=== PATIENT | female | born 1990 ===

== ENCOUNTER 2017-08-10 10:23 | Emergency (ER) | payer OTHER ==
[2017-08-10 10:40] VITALS: BP 122/75; PULSE 82; TEMP 98; O2SAT 100
--- NOTE | 2017-08-10 10:47 | C.PDOC ---
History Of Present Illness 25 y/o female presents to the ED for evaluation of possible allergic reaction. Patient works at a dental office and had a dental procedure done on , and was prescribed Tylenol, Codeine and Azithromycin. Later on patient noted left and right side facial swelling and itchiness. She went to her dentist and he noted that the swelling is not related to dental procedure and might be allergic reaction and advised the patient to come to ED. Denies fever, SOB, or any further medical complaints. Dr. Allred Time Seen by Provider: 08/10/17 10:34 Chief Complaint (Nursing): Allergic Reaction History Per: Patient History/Exam Limitations: no limitations Onset/Duration Of Symptoms: Days (x3 days) Current Symptoms Are (Timing): Still Present Past Medical History Vital Signs: Last Vital Signs Temp 98 F 08/10/17 10:38 Pulse 82 08/10/17 10:38 Resp 18 08/10/17 10:38 BP 122/75 08/10/17 10:38 Pulse Ox 100 08/10/17 11:01 - Medical History PMH: Hyperlipidemia Surgical History: No Surg Hx Family History: States: Unknown Family Hx - Social History Hx Tobacco Use: Yes (Light smoker < 10 cigarettes daily) Hx Alcohol Use: Yes Hx Substance Use: Yes Review Of Systems Except As Marked, All Systems Reviewed And Found Negative. (As per HPI, otehrwise negative) Physical Exam - Physical Exam Appears: Well, No Acute Distress Skin: Normal Color, Warm, Dry Eye(s): bilateral: Normal Inspection, PERRL, EOMI Nose: Normal Tongue: Normal Appearing Lips: Normal Appearing Teeth: Normal Dentition Throat: Normal Neck: Normal Cardiovascular: Rhythm Regular, No Murmur Respiratory: Normal Breath Sounds, No Accessory Muscle Use Neurological/Psych: Oriented x3 ED Course And Treatment O2 Sat by Pulse Oximetry: 100 (RA) Pulse Ox Interpretation: Normal Medical Decision Making Medical Decision Making: Time: 10:35 Initial Impression: Allergic reaction Plan: Diphenhydramine 50mg PO Prednisone 60mg PO --Discontinue Codeine and Azithromycin. Time: 10:43 Upon provider reevaluation patient is feeling better, is medically stable, and requires no further treatment in the ED at this time. Patient will be discharged home with Rx for Clindamycin 1tab PO, Diphenhydramine 1tab PO and Prednisone 1tab PO. Counseling was provided and all questions were answered regarding diagnosis. There is agreement to discharge plan. Return if symptoms persist or worsen. Clinical Impression: Drug Allergy Scribe Attestation: Documented by Sharan Merino acting as a scribe for Boy Em MD. Scribe Attestation: All medical record entries made by the Scribe were at my direction and personally dictated by me. I have reviewed the chart and agree that the record accurately reflects my personal performance of the history, physical exam, medical decision making, and the department course for this patient. I have also personally directed, reviewed, and agree with the discharge instructions and disposition. Disposition Counseled Patient/Family Regarding: Need For Followup, Rx Given - Disposition Disposition: HOME/ ROUTINE Disposition Time: 10:43 Condition: STABLE Additional Instructions: Ric, thank you for letting us take care of you today. You are having an allergic reaction to either Tylenol with Codeine or Azithromycin. Do not take these medications again. Return to the ER if your symptoms worsen, or if any problems. Please discontinue BOTH the Tylenol with Codeine and Azithromycin Take the medication listed below as prescribed. Follow up with Dr. Allred in 1-2 days for a re-evaluation. Prescriptions: Clindamycin [Cleocin] 1 tab PO TID #21 cap DiphenhydrAMINE [Benadryl] 1 tab PO DAILY PRN #30 cap PRN Reason: Itching / Pruritus Prednisone [Deltasone] 1 tab PO BID #10 tablet Instructions: Antibiotic Medication Allergy (ED), General Allergic Reaction (ED ) Forms: [facility] ([place]izen [place]), General Discharge Instructions Print Language: [place]ISH - Clinical Impression Clinical Impression: Drug allergy
[2017-08-10 11:14] VITALS: RESP 16
== END 2017-08-10 11:00 | disposition home or self-care (01) ==
LOC: C.ER 10:23
DX: T88.7XXA Unspecified adverse effect of drug or medicament, initial encounter (principal); T50.995A Adverse effect of other drugs, medicaments and biological substances, initial encounter; Y92.89 Other specified places as the place of occurrence of the external cause

== ENCOUNTER 2018-07-26 14:50 | Inpatient (IN) | payer OTHER ==
[2018-07-26] MEDS ORDERED: Sodium Chloride 0.9% 1,000 ML IV ONE (15:19)
--- NOTE | 2018-07-26 15:26 | C.PDOC ---
History Of Present Illness 27 yo female presents iwth left sided abd pain/left flank pain since last night. no fevers, no n/v/d, no hematuria, lmp 12/13. Time Seen by Provider: 07/26/18 15:14 Chief Complaint (Nursing): Abdominal Pain Past Medical History Reviewed: Historical Data, Nursing Documentation, Vital Signs Vital Signs: Last Vital Signs Temp 97.9 F 07/26/18 14:55 Pulse 100 H 07/26/18 14:55 Resp 20 07/26/18 14:55 BP 104/61 07/26/18 14:55 Pulse Ox 100 07/26/18 14:55 - Medical History PMH: Bipolar Disorder, Hyperlipidemia Family History: States: Unknown Family Hx - Social History Hx Tobacco Use: Yes (Light smoker < 10 cigarettes daily) Hx Alcohol Use: Yes Hx Substance Use: Yes (THC) - Immunization History Hx Tetanus Toxoid Vaccination: No Hx Influenza Vaccination: No Hx Pneumococcal Vaccination: No Review Of Systems Gastrointestinal: Positive for: Abdominal Pain Physical Exam - Physical Exam Appears: Well, No Acute Distress Skin: Normal Color, Warm, Dry Eye(s): bilateral: Normal Inspection, PERRL, EOMI Nose: Normal Throat: Normal Neck: Normal Cardiovascular: Rhythm Regular Respiratory: Normal Breath Sounds Gastrointestinal/Abdominal: Normal Exam, Soft, Tenderness (left flank), No Guarding, No Rebound Back: Normal Inspection Extremity: Normal ROM ED Course And Treatment - Laboratory Results Result Diagrams: 07/27/18 09:16 07/27/18 09:16 O2 Sat by Pulse Oximetry: 100 Medical Decision Making Medical Decision Making: ro renal colic vs uti/pyelo. labs imaging pending 600: pt reassesed pain improving. ct pending read ct shows possible perferoated diverticulits antibiotics dosed hemodynamicall stable. surgery consulted. [facility] Disposition - Disposition Disposition: HOSPITALIZED Disposition Time: 14:29 Condition: STABLE - Clinical Impression Clinical Impression: Diverticulitis, Perforated diverticulum
[2018-07-26 16:06] LABS: HCG,QUALITATIVE URINE NEGATIVE (NEGATIVE)
[2018-07-26 16:07] LABS: BASO % 0.2 % (0.0-2.0); EOS # 0.3 K/uL (0.0-0.7); HEMOGLOBIN 14.1 g/dL (11.0-16.0); LYMPH # 1.8 K/uL (1.0-4.3); LYMPH % 14.6 % (20.0-40.0); MEAN CELL VOLUME 92.9 fL (81.0-99.0); MEAN CORPUSCULAR HEMOGLOBIN 31.2 pg (27.0-31.0); MEAN CORPUSCULAR HGB CONC 33.5 g/dL (33.0-37.0); MEAN PLATELET VOLUME 7.8 fL (7.2-11.7); MONO # 1.1 K/uL (0.0-0.8); MONO % 8.8 % (0.0-10.0); NEUT # 9.4 K/uL (1.8-7.0); NEUT % 74.4 % (50.0-75.0); RBC 4.54 Mil/uL (3.80-5.20); WHITE BLOOD COUNT 12.7 K/uL (4.8-10.8)
[2018-07-26 16:10] LABS: SQUAMOUS EPITHIAL 12 /hpf (0-5); URINE BACTERIA RARE (<OCC); URINE BILIRUBIN NEGATIVE (NEGATIVE); URINE BLOOD 3+ (NEGATIVE); URINE CLARITY Hazy (Clear); URINE COLOR Yellow (YELLOW); URINE GLUCOSE (UA) NORMAL (Normal); URINE LEUKOCYTE ESTERASE NEG Leu/uL (Negative); URINE PROTEIN NEGATIVE (NEGATIVE); URINE UROBILINOGEN NORMAL mg/dL (0.2-1.0)
[2018-07-26 16:20] LABS: ALB/GLOB RATIO 1.5 (1.0-2.1); ALBUMIN 4.4 g/dL (3.5-5.0); ALT/SGPT 28 U/L (9-52); AST/SGOT 22 U/L (14-36); BLOOD UREA NITROGEN 11 mg/dL (7-17); GFR NON-AFRICAN AMERICAN > 60; LIPASE 22 U/L (23-300)
[2018-07-26 16:21] LABS: INR 1.2; PROTHROMBIN TIME 12.6 SECONDS (9.7-12.2)
[2018-07-26] MEDS ORDERED: Piperacillin/Tazobact 3.375 gm 100 ML IVPB STA (18:57)
[2018-07-26] MEDS ORDERED: Piperacill/Tazo 3.375gm in Dex 3.375 GM/50 ML BAG IVPB STA (19:07)
--- NOTE | 2018-07-26 19:19 | RAD ---
HISTORY: abd pain COMPARISON: None available. TECHNIQUE: Chest, one view. FINDINGS: LUNGS: No focal consolidation. Please note that chest x-ray has limited sensitivity for the detection of pulmonary masses. PLEURA: No significant pleural effusion identified. No definite pneumothorax . CARDIOVASCULAR: Heart size appears within normal limits. No significant atherosclerotic calcification present. OSSEOUS STRUCTURES: No acute osseous abnormality identified. VISUALIZED UPPER ABDOMEN: Unremarkable. OTHER FINDINGS: None. IMPRESSION: No focal consolidation.
[2018-07-26] MEDS ORDERED: Piperacillin/Tazobact 3.375 GM in Sodium Chloride 100 ML IVPB SCH (20:15)
--- NOTE | 2018-07-26 20:20 | CP.PCM.CON ---
History of Present Illness - History of Present Illness History of Present Illness: General Surgery Consult Note for Dr. Uriarte Consult: Diverticulitis CC: Abdominal pain HPI: 27 year old female, past medical history significant for IBS and colitis, presents to the emergency department with sudden onset left lower quadrant pain since yesterday evening. Patient initially thought it was gas. She had a small bowel movement today and is passing gas with no symptom relief. The pain worsened to a cramping sensation that radiated to her back and became unbearable. She was unable to find a comfortable position and admits to a subjective fever. She has had a similar episode about 2-3 months ago which brought her to the ER. At that time, she was found to have colitis and sent home with "some pills" that made her better. Her diet primarily consists of greasy, low fiber, high fat foods. She does not see a loans officer; however, her previous doctor in [place] did explain that she needs to adjust her diet and incorporate more fiber. She suffers from constipation regularly and her bowel movements are usually "pellets" that require straining to evacuate. She denies any colonoscopies or EGDs in the past. Patient denies any bloody bowel movements, black/tarry stools, hematemesis, nausea, vomiting, diarrhea, chills, shortness of breath, chest pain, or urinary symptoms. PMH: See above PSH: Cervical biopsy after pap smear (Path was normal per patient) FH: Noncontributory SH: Smokes 2-3 cigarettes since 13 years of age. Social drinker. No drugs. ALL: Azithromycin Meds: See MAR Review of Systems - Constitutional Constitutional: Fever. absent: Chills, Weight Loss - EENT Eyes: absent: Blurred Vision, Change in Vision Nose/Mouth/Throat: absent: Nasal Congestion, Nasal Discharge - Cardiovascular Cardiovascular: absent: Chest Pain, Dyspnea - Respiratory Respiratory: absent: Cough, Dyspnea - Gastrointestinal Gastrointestinal: Abdominal Pain, Constipation, Cramping. absent: Diarrhea, Melena, Nausea, Vomiting - Genitourinary Genitourinary: absent: Difficulty Urinating, Dysuria - Musculoskeletal Musculoskeletal: Back Pain. absent: Neck Pain - Integumentary Integumentary: absent: Bleeding Lesions, Changing Lesions - Neurological Neurological: absent: Confusion, Dizziness - Psychiatric Psychiatric: absent: Anxiety, Depression Past Patient History - Infectious Disease Hx of Infectious Diseases: None - Past Social History Smoking Status: Light Smoker < 10 Cigarettes Daily - GASTROINTESTINAL Hx Irritable Bowel: Yes - PSYCHIATRIC Hx Bipolar Disorder: Yes Hx Substance Use: Yes (THC) - SURGICAL HISTORY Hx Surgeries: Yes Other/Comment: tooth implant - ANESTHESIA Hx Anesthesia: Yes Hx Anesthesia Reactions: No Meds Allergies/Adverse Reactions: Allergies Allergy/AdvReac Type Severity Reaction Status Date / Time acetaminophen Allergy Verified 08/10/17 10:38 [From Tylenol-Codeine #3] azithromycin Allergy Verified 08/10/17 10:38 [From Zithromax Z-Yaya] codeine Allergy Verified 08/10/17 10:38 [From Tylenol-Codeine #3] - Medications Medications: Current Medications Lactated Ringer's (Lactated Ringer's) 1,000 mls @ 100 mls/hr IV .Q10H CARLOS Metronidazole (Flagyl) 500 mg in 100 mls @ 100 mls/hr IVPB Q8H CARLOS; Protocol Piperacillin Sod/Tazobactam (Sod 3.375 gm/ Sodium Chloride) 100 mls @ 200 mls /hr IVPB Q6H CARLOS; Protocol Ondansetron HCl (Zofran Inj) 4 mg IVP DAILY@ONCE PRN PRN Reason: Nausea/Vomiting Tramadol HCl (Ultram) 50 mg PO TID PRN PRN Reason: Pain, moderate (4-7) Physical Exam - Constitutional Appears: Well, Non-toxic, No Acute Distress - Head Exam Head Exam: ATRAUMATIC, NORMAL INSPECTION, NORMOCEPHALIC - Eye Exam Eye Exam: EOMI - ENT Exam ENT Exam: Mucous Membranes Moist - Respiratory Exam Respiratory Exam: NORMAL BREATHING PATTERN. absent: Respiratory Distress - Cardiovascular Exam Cardiovascular Exam: REGULAR RHYTHM. absent: Tachycardia - GI/Abdominal Exam GI & Abdominal Exam: Normal Bowel Sounds, Soft, Tenderness (in the left lower quadrant ). absent: Distended, Guarding, Rebound - Neurological Exam Neurological exam: Alert, Oriented x3 - Psychiatric Exam Psychiatric exam: Normal Affect, Normal Mood - Skin Skin Exam: Dry, Intact, Normal Color, Warm Results - Vital Signs Recent Vital Signs: Last Vital Signs Temp 98.8 F 07/26/18 20:11 Pulse 83 07/26/18 20:11 Resp 16 07/26/18 20:11 BP 98/62 L 07/26/18 20:11 Pulse Ox 100 07/26/18 20:11 - Labs Result Diagrams: 07/26/18 16:02 07/26/18 16:02 Labs: Laboratory Results - last 24 hr 07/26/18 07/26/18 07/26/18 16:02 16:02 16:02 WBC 12.7 H RBC 4.54 Hgb 14.1 Hct 42.1 MCV 92.9 MCH 31.2 H MCHC 33.5 RDW 13.0 Plt Count 263 MPV 7.8 Neut % (Auto) 74.4 Lymph % (Auto) 14.6 L [place] % (Auto) 8.8 Eos % (Auto) 2.0 Baso % (Auto) 0.2 Neut # (Auto) 9.4 H Lymph # (Auto) 1.8 [place] # (Auto) 1.1 H Eos # (Auto) 0.3 Baso # (Auto) 0.0 PT 12.6 H INR 1.2 APTT 30 Sodium Potassium Chloride Carbon Dioxide Anion Gap BUN Creatinine Est GFR ( Amer) Est GFR (Non-Af Amer) Random Glucose Calcium Total Bilirubin AST ALT Alkaline Phosphatase Total Protein Albumin Globulin Albumin/Globulin Ratio Lipase Urine Color Yellow Urine Clarity Hazy Urine pH 5.0 Ur Specific [place] 1.025 Urine Protein Negative Urine Glucose (UA) Normal Urine Ketones Negative Urine Blood 3+ H Urine Nitrate Negative Urine Bilirubin Negative Urine Urobilinogen Normal Ur Leukocyte Esterase Neg Urine WBC (Auto) 2 Urine RBC (Auto) 31 H Ur Squamous Epith Cells 12 H Urine Bacteria Rare Urine HCG, Qual Negative 07/26/18 16:02 WBC RBC Hgb Hct MCV MCH MCHC RDW Plt Count MPV Neut % (Auto) Lymph % (Auto) [place] % (Auto) Eos % (Auto) Baso % (Auto) Neut # (Auto) Lymph # (Auto) [place] # (Auto) Eos # (Auto) Baso # (Auto) PT INR APTT Sodium 136 Potassium 3.8 Chloride 103 Carbon Dioxide 25 Anion Gap 12 BUN 11 Creatinine 0.7 Est GFR ( Amer) > 60 Est GFR (Non-Af Amer) > 60 Random Glucose 96 Calcium 9.0 Total Bilirubin 0.7 AST 22 ALT 28 Alkaline Phosphatase 68 Total Protein 7.3 Albumin 4.4 Globulin 2.9 Albumin/Globulin Ratio 1.5 Lipase 22 L Urine Color Urine Clarity Urine pH Ur Specific [place] Urine Protein Urine Glucose (UA) Urine Ketones Urine Blood Urine Nitrate Urine Bilirubin Urine Urobilinogen Ur Leukocyte Esterase Urine WBC (Auto) Urine RBC (Auto) Ur Squamous Epith Cells Urine Bacteria Urine HCG, Qual Assessment & Plan - Assessment and Plan (Free Text) Assessment: 27F w/ left lower quadrant abdominal pain CT Abd/Pel shows a left sided perforated diverticlum with associated inflammatory changes and early phlegmon. No definite fluid collection, no free air. Plan: NPO IV Abx IVF Antiemetics and analgesics PRN Serial abdominal exams Monitor vital signs and hemodynamic stability AM labs Replete electrolytes as needed Recommend GI consult Will continue to follow D/w Dr. Kalani Dumont PGY1
[2018-07-26] MEDS ORDERED: metroNIDAZOLE IV 500 mg/100 ml 500 MG/100 ML BAG ONE (20:22)
[2018-07-26] MEDS ORDERED: Lactated Ringer's 1,000 ML ONE (20:22)
[2018-07-26] MEDS: metroNIDAZOLE IV 500 mg/100 ml 500 MG/100 ML BAG IVPB SCH (20:23)
--- NOTE | 2018-07-26 20:35 | CT ---
PROCEDURE: CT Abdomen and Pelvis without Oral or IV contrast. HISTORY: left flank pain COMPARISON: None available. TECHNIQUE: Contiguous axial images of the abdomen and pelvis. No oral or IV contrast administered. Coronal and Sagittal reformats generated and reviewed. Radiation dose: Total exam DLP = 270.1 mGy-cm. This CT exam was performed using one or more of the following dose reduction techniques: Automated exposure control, adjustment of the mA and/or kV according to patient size, and/or use of iterative reconstruction technique. FINDINGS: There is limited evaluation of the solid organs without the administration of IV contrast. LOWER THORAX: No visible consolidation, pleural effusion, or pneumothorax. LIVER: Unremarkable unenhanced appearance. GALLBLADDER AND BILE DUCTS: Unremarkable unenhanced appearance. PANCREAS: Unremarkable unenhanced appearance. SPLEEN: Unremarkable unenhanced appearance. ADRENALS: Unremarkable unenhanced appearance. KIDNEYS AND URETERS: No hydronephrosis or obstructing renal calculus. BLADDER: The urinary bladder appears unremarkable. REPRODUCTIVE: Uterus is present. Left adnexal prominence likely represents the ovary possibly with cyst. APPENDIX: The appendix appears within normal limits of caliber. No secondary signs of acute appendicitis. BOWEL: The stomach is nondistended. Lack of oral contrast limits evaluation for bowel pathology. The bowel loops appear within normal limits of caliber without evidence of intestinal obstruction. Extensive wall thickening of the left colon in region of diverticula with associated inflammatory changes; appearance consistent with acute diverticulitis. PERITONEUM: No significant free fluid. No definite free air. LYMPH NODES: No bulky lymphadenopathy identified. VASCULATURE: No atherosclerotic calcification of the aorta present. No aortic aneurysm. BONES: No acute osseous abnormality is detected. OTHER FINDINGS: None. IMPRESSION: Findings as above consistent with acute diverticulitis involving the left mid colon. Left adnexal prominence likely represents the ovary possibly with cyst; recommend pelvic ultrasound for further evaluation. Preliminary impression was provided by [facility].
[2018-07-26] MEDS: Lactated Ringer's 1,000 ML IV SCH (21:03)
--- NOTE | 2018-07-26 21:16 | CP.PCM.HP ---
<Jason Bryson - Last Filed: 07/26/18 21:18> History of Present Illness - History of Present Illness History of Present Illness: PGY-[address] Portillo Patient is a 27 year old female with PMHx only of bipolar disorder/depression who states that she began having left lower quadrant pain yesterday afternoon/evening which occurred abruptly. She does have a history of IBS with constipation, but no nausea, vomiting, or diarrhea. No prior history of diverticulitis. She denies fevers, fatigue, or chills. Came to ED and found to have acute diverticulitis on CT abdomen. She had been tolerating PO intake without any pain. Denies family hx of cancer, abdominal issues, or other problems. PMHxL Bipolar/depression - does not see psych currently Allergies: NKA Surgeries: None Family hx: No known Medications: Bowles (prescribed in past, not currently taking, dose unknown) PMD: None Present on Admission - Present on Admission Any Indicators Present on Admission: No Review of Systems - Constitutional Constitutional: absent: Chills, Fatigue, Fever - EENT Eyes: absent: Blurred Vision, Diplopia Ears: absent: Dizziness Nose/Mouth/Throat: absent: Nasal Congestion, Sinus Pain - Cardiovascular Cardiovascular: absent: Chest Pain, Chest Pain at Rest, Claudication, Diaphoresis - Respiratory Respiratory: absent: Cough, Dyspnea - Gastrointestinal Gastrointestinal: Abdominal Pain (llq pain. Not worse with food.), Constipation. absent: Belching, Bloating, Cramping, Diarrhea - Genitourinary Genitourinary: absent: Change in Urinary Stream, Dysuria - Reproductive: Female Reproductive:Female: absent: Amenorrhea, Menopausal - Musculoskeletal Musculoskeletal: absent: Back Pain, Myalgias, Neck Pain - Neurological Neurological: absent: Dizziness, Numbness - Psychiatric Psychiatric: absent: Anxiety, Depression - Endocrine Endocrine: absent: Fatigue, Polydipsia, Polyuria Past Patient History - Infectious Disease Hx of Infectious Diseases: None - Past Social History Smoking Status: Light Smoker < 10 Cigarettes Daily - GASTROINTESTINAL Hx Irritable Bowel: Yes - PSYCHIATRIC Hx Bipolar Disorder: Yes Hx Substance Use: Yes (THC) - SURGICAL HISTORY Hx Surgeries: Yes Other/Comment: tooth implant - ANESTHESIA Hx Anesthesia: Yes Hx Anesthesia Reactions: No Meds Allergies/Adverse Reactions: Allergies Allergy/AdvReac Type Severity Reaction Status Date / Time acetaminophen Allergy Verified 08/10/17 10:38 [From Tylenol-Codeine #3] azithromycin Allergy Verified 08/10/17 10:38 [From Zithromax Z-Yaya] codeine Allergy Verified 08/10/17 10:38 [From Tylenol-Codeine #3] Physical Exam - Constitutional Appears: Non-toxic, No Acute Distress - Head Exam Head Exam: ATRAUMATIC, NORMOCEPHALIC - Eye Exam Eye Exam: EOMI, Normal appearance - ENT Exam ENT Exam: Mucous Membranes Moist - Respiratory Exam Respiratory Exam: Clear to Auscultation Bilateral, NORMAL BREATHING PATTERN. absent: Rhonchi, Wheezes - Cardiovascular Exam Cardiovascular Exam: REGULAR RHYTHM, +S1, +S2 - GI/Abdominal Exam GI & Abdominal Exam: Normal Bowel Sounds, Soft, Tenderness (lllq mildly tender to palpation). absent: Distended, Firm, Rebound, Rigid - Extremities Exam Extremities exam: Negative for: pedal edema, tenderness - Neurological Exam Neurological exam: Alert, CN II-XII Intact, Oriented x3 - Psychiatric Exam Psychiatric exam: Normal Affect, Normal Mood - Skin Skin Exam: Dry, Intact Results - Vital Signs Recent Vital Signs: Last Vital Signs Temp 98.6 F 07/26/18 20:55 Pulse 75 07/26/18 20:55 Resp 18 07/26/18 20:55 BP 99/66 L 07/26/18 20:55 Pulse Ox 99 07/26/18 20:55 - Labs Result Diagrams: 07/26/18 16:02 07/26/18 16:02 Labs: Laboratory Results - last 24 hr 07/26/18 07/26/18 07/26/18 16:02 16:02 16:02 WBC 12.7 H RBC 4.54 Hgb 14.1 Hct 42.1 MCV 92.9 MCH 31.2 H MCHC 33.5 RDW 13.0 Plt Count 263 MPV 7.8 Neut % (Auto) 74.4 Lymph % (Auto) 14.6 L [place] % (Auto) 8.8 Eos % (Auto) 2.0 Baso % (Auto) 0.2 Neut # (Auto) 9.4 H Lymph # (Auto) 1.8 [place] # (Auto) 1.1 H Eos # (Auto) 0.3 Baso # (Auto) 0.0 PT 12.6 H INR 1.2 APTT 30 Sodium Potassium Chloride Carbon Dioxide Anion Gap BUN Creatinine Est GFR ( Amer) Est GFR (Non-Af Amer) Random Glucose Calcium Total Bilirubin AST ALT Alkaline Phosphatase Total Protein Albumin Globulin Albumin/Globulin Ratio Lipase Urine Color Yellow Urine Clarity Hazy Urine pH 5.0 Ur Specific [place] 1.025 Urine Protein Negative Urine Glucose (UA) Normal Urine Ketones Negative Urine Blood 3+ H Urine Nitrate Negative Urine Bilirubin Negative Urine Urobilinogen Normal Ur Leukocyte Esterase Neg Urine WBC (Auto) 2 Urine RBC (Auto) 31 H Ur Squamous Epith Cells 12 H Urine Bacteria Rare Urine HCG, Qual Negative 07/26/18 16:02 WBC RBC Hgb Hct MCV MCH MCHC RDW Plt Count MPV Neut % (Auto) Lymph % (Auto) [place] % (Auto) Eos % (Auto) Baso % (Auto) Neut # (Auto) Lymph # (Auto) [place] # (Auto) Eos # (Auto) Baso # (Auto) PT INR APTT Sodium 136 Potassium 3.8 Chloride 103 Carbon Dioxide 25 Anion Gap 12 BUN 11 Creatinine 0.7 Est GFR ( Amer) > 60 Est GFR (Non-Af Amer) > 60 Random Glucose 96 Calcium 9.0 Total Bilirubin 0.7 AST 22 ALT 28 Alkaline Phosphatase 68 Total Protein 7.3 Albumin 4.4 Globulin 2.9 Albumin/Globulin Ratio 1.5 Lipase 22 L Urine Color Urine Clarity Urine pH Ur Specific [place] Urine Protein Urine Glucose (UA) Urine Ketones Urine Blood Urine Nitrate Urine Bilirubin Urine Urobilinogen Ur Leukocyte Esterase Urine WBC (Auto) Urine RBC (Auto) Ur Squamous Epith Cells Urine Bacteria Urine HCG, Qual Assessment & Plan - Assessment and Plan (Free Text) Assessment: Diverticulitis: - Annette consulted Dr. Uriarte - f/u further recs - --Abx continued per surgery - Zosyn/flagyl - --LRs @ 100 cc/hr - --NPO - --no surgical intervention at this time - Toradol given stat in ED - prn tramadol 50 mg PO - Blood cultures - f/u - Zofran 4 mg IV prn Possible Hx Bipolar/depression: - Patient denies seeing psych or taking meds at this time. She denies current sx. Denies SI/HI - Consider possible psych consult. PPx: - heparin 5000 U SC Q8 d/w Dr. Lindsey Bryson, PGY-1 <Julio Portillo - Last Filed: 07/27/18 06:24> Results - Vital Signs Recent Vital Signs: Last Vital Signs Temp 98.2 F 07/26/18 23:00 Pulse 77 07/27/18 00:00 Resp 20 07/26/18 23:00 BP 100/62 07/26/18 23:00 Pulse Ox 98 07/26/18 23:00 - Labs Result Diagrams: 07/26/18 16:02 07/26/18 16:02 Labs: Laboratory Results - last 24 hr 07/26/18 07/26/18 07/26/18 16:02 16:02 16:02 WBC 12.7 H RBC 4.54 Hgb 14.1 Hct 42.1 MCV 92.9 MCH 31.2 H MCHC 33.5 RDW 13.0 Plt Count 263 MPV 7.8 Neut % (Auto) 74.4 Lymph % (Auto) 14.6 L [place] % (Auto) 8.8 Eos % (Auto) 2.0 Baso % (Auto) 0.2 Neut # (Auto) 9.4 H Lymph # (Auto) 1.8 [place] # (Auto) 1.1 H Eos # (Auto) 0.3 Baso # (Auto) 0.0 PT 12.6 H INR 1.2 APTT 30 Sodium Potassium Chloride Carbon Dioxide Anion Gap BUN Creatinine Est GFR ( Amer) Est GFR (Non-Af Amer) Random Glucose Calcium Total Bilirubin AST ALT Alkaline Phosphatase Total Protein Albumin Globulin Albumin/Globulin Ratio Lipase Urine Color Yellow Urine Clarity Hazy Urine pH 5.0 Ur Specific [place] 1.025 Urine Protein Negative Urine Glucose (UA) Normal Urine Ketones Negative Urine Blood 3+ H Urine Nitrate Negative Urine Bilirubin Negative Urine Urobilinogen Normal Ur Leukocyte Esterase Neg Urine WBC (Auto) 2 Urine RBC (Auto) 31 H Ur Squamous Epith Cells 12 H Urine Bacteria Rare Urine HCG, Qual Negative 07/26/18 16:02 WBC RBC Hgb Hct MCV MCH MCHC RDW Plt Count MPV Neut % (Auto) Lymph % (Auto) [place] % (Auto) Eos % (Auto) Baso % (Auto) Neut # (Auto) Lymph # (Auto) [place] # (Auto) Eos # (Auto) Baso # (Auto) PT INR APTT Sodium 136 Potassium 3.8 Chloride 103 Carbon Dioxide 25 Anion Gap 12 BUN 11 Creatinine 0.7 Est GFR ( Amer) > 60 Est GFR (Non-Af Amer) > 60 Random Glucose 96 Calcium 9.0 Total Bilirubin 0.7 AST 22 ALT 28 Alkaline Phosphatase 68 Total Protein 7.3 Albumin 4.4 Globulin 2.9 Albumin/Globulin Ratio 1.5 Lipase 22 L Urine Color Urine Clarity Urine pH Ur Specific [place] Urine Protein Urine Glucose (UA) Urine Ketones Urine Blood Urine Nitrate Urine Bilirubin Urine Urobilinogen Ur Leukocyte Esterase Urine WBC (Auto) Urine RBC (Auto) Ur Squamous Epith Cells Urine Bacteria Urine HCG, Qual Assessment & Plan - Date & Time Date: 07/27/18 (I have seen and examined the patient. I agree with the findings and plan of care as documented by Dr. Bryson. Patient with diverticulitis. Cipro and Flagyl. Consult to surgery. Symptomatic treatment. Monitor for acute changes.) Time: 06:23 Attending/Attestation - Attestation I have personally seen and examined this patient.: Yes I have fully participated in the care of the patient.: Yes I have reviewed all pertinent clinical information: Yes
[2018-07-27 01:30] VITALS: RESP 20
[2018-07-27] MEDS: Piperacill/Tazo 3.375gm in Dex 3.375 GM/50 ML BAG IVPB SCH ×4 (03:12→20:36)
[2018-07-27] MEDS: metroNIDAZOLE IV 500 mg/100 ml 500 MG/100 ML BAG IVPB SCH ×3 (04:13→21:00)
[2018-07-27] MEDS: Lactated Ringer's 1,000 ML IV SCH ×3 (06:14→21:34)
--- NOTE | 2018-07-27 09:10 | CP.PCM.PN ---
Subjective - Date & Time of Evaluation Date of Evaluation: 07/27/18 Time of Evaluation: 07:00 - Subjective Subjective: General Surgery Pt Seen and examined. Pain has improved somewhat. Mostly painful with movement. No N/V. No BM/flatus. Reports she is hungry. Afebrile. Objective - Vital Signs/Intake and Output Vital Signs (last 24 hours): Temp Pulse Resp BP Pulse Ox 98.5 F 70 20 100/68 95 07/27/18 07:00 07/27/18 07:07 07/27/18 07:00 07/27/18 07:00 07/27/18 07:00 Intake and Output: 07/27/18 07/27/18 06:59 18:59 Intake Total 700 Balance 700 - Medications Medications: Current Medications Heparin Sodium (Porcine) (Heparin) 5,000 units SC Q8 [facility] Last Admin: 07/27/18 05:04 Dose: Not Given Lactated Ringer's (Lactated Ringer's) 1,000 mls @ 100 mls/hr IV .Q10H [facility] Last Admin: 07/27/18 06:14 Dose: 100 mls/hr Metronidazole (Flagyl) 500 mg in 100 mls @ 100 mls/hr IVPB Q8H [facility]; Protocol Last Admin: 07/27/18 04:13 Dose: 100 mls/hr Piperacillin Sod/Tazobactam Sod (Zosyn 3.375 Gm Iv Premix) 3.375 gm in 50 mls @ 100 mls/hr IVPB Q6H [facility]; Protocol Last Admin: 07/27/18 08:57 Dose: 100 mls/hr Ondansetron HCl (Zofran Inj) 4 mg IVP DAILY@ONCE PRN PRN Reason: Nausea/Vomiting Tramadol HCl (Ultram) 50 mg PO TID PRN PRN Reason: Pain, moderate (4-7) - Labs Labs: 07/26/18 16:02 07/26/18 16:02 PT 12.6 SECONDS (9.7-12.2) H 07/26/18 16:02 INR 1.2 07/26/18 16:02 APTT 30 SECONDS (21-34) 07/26/18 16:02 - Constitutional Appears: Non-toxic, No Acute Distress - Head Exam Head Exam: ATRAUMATIC, NORMOCEPHALIC - Eye Exam Eye Exam: EOMI. absent: Scleral icterus - Respiratory Exam Respiratory Exam: NORMAL BREATHING PATTERN. absent: Respiratory Distress - GI/Abdominal Exam GI & Abdominal Exam: Soft, Tenderness (in LLQ). absent: Distended, Firm, Guarding, Rigid, Rebound - Extremities Exam Extremities Exam: Normal Capillary Refill. absent: Calf Tenderness, Pedal Edema - Neurological Exam Neurological Exam: Alert, Awake, Oriented x3 - Skin Skin Exam: Dry, Warm Assessment and Plan - Assessment and Plan (Free Text) Assessment: 27F with diverticulitis Plan: NPO until pain subsides. Continue Abx Recommend GI consult Will continue to follow D/W Dr. Kalani Krueger PGY4
[2018-07-27 09:23] LABS: BASO % 0.2 % (0.0-2.0); EOS # 0.3 K/uL (0.0-0.7); EOS % 3.2 % (0.0-4.0); HEMOGLOBIN 12.2 g/dL (11.0-16.0); LYMPH % 21.9 % (20.0-40.0); MEAN CELL VOLUME 93.1 fL (81.0-99.0); MEAN CORPUSCULAR HEMOGLOBIN 32.2 pg (27.0-31.0); MEAN CORPUSCULAR HGB CONC 34.5 g/dL (33.0-37.0); MEAN PLATELET VOLUME 8.5 fL (7.2-11.7); MONO # 0.7 K/uL (0.0-0.8); MONO % 7.5 % (0.0-10.0); NEUT # 6.2 K/uL (1.8-7.0); NEUT % 67.2 % (50.0-75.0); RBC 3.79 Mil/uL (3.80-5.20); RED CELL DISTRIBUTION WIDTH 12.8 % (11.5-14.5); WHITE BLOOD COUNT 9.3 K/uL (4.8-10.8)
[2018-07-27 09:53] LABS: BLOOD UREA NITROGEN 10 mg/dL (7-17); CALCIUM 7.9 mg/dl (8.6-10.4); GFR NON-AFRICAN AMERICAN > 60
[2018-07-27 10:39] LABS: ALB/GLOB RATIO 1.2 (1.0-2.1); ALBUMIN 3.3 g/dL (3.5-5.0); ALT/SGPT 27 U/L (9-52); AST/SGOT 20 U/L (14-36); BILIRUBIN,DIRECT 0.4 mg/dL (0.0-0.4)
--- NOTE | 2018-07-27 19:23 | CP.PCM.PN ---
Subjective - Date & Time of Evaluation Date of Evaluation: 07/27/18 Time of Evaluation: 19:20 - Subjective Subjective: Patient seen and examined at bedside. She complains of abdominal pain. Denies any fever, chills, chest pain, SOB, changes in bowel habits or urinary symptoms. Objective - Vital Signs/Intake and Output Vital Signs (last 24 hours): Temp Pulse Resp BP Pulse Ox 98.1 F 69 20 92/59 L 98 07/27/18 15:00 07/27/18 16:29 07/27/18 15:00 07/27/18 15:00 07/27/18 15:00 Intake and Output: 07/27/18 07/28/18 18:59 06:59 Intake Total 1100 Balance 1100 - Medications Medications: Current Medications Heparin Sodium (Porcine) (Heparin) 5,000 units SC Q8 [facility] Last Admin: 07/27/18 13:06 Dose: Not Given Lactated Ringer's (Lactated Ringer's) 1,000 mls @ 100 mls/hr IV .Q10H [facility] Last Admin: 07/27/18 17:05 Dose: Not Given Metronidazole (Flagyl) 500 mg in 100 mls @ 100 mls/hr IVPB Q8H [facility]; Protocol Last Admin: 07/27/18 12:52 Dose: 100 mls/hr Piperacillin Sod/Tazobactam Sod (Zosyn 3.375 Gm Iv Premix) 3.375 gm in 50 mls @ 100 mls/hr IVPB Q6H [facility]; Protocol Last Admin: 07/27/18 14:32 Dose: 100 mls/hr Ondansetron HCl (Zofran Inj) 4 mg IVP DAILY@ONCE PRN PRN Reason: Nausea/Vomiting Tramadol HCl (Ultram) 50 mg PO TID PRN PRN Reason: Pain, moderate (4-7) - Labs Labs: 07/27/18 09:16 07/27/18 09:16 PT 12.6 SECONDS (9.7-12.2) H 07/26/18 16:02 INR 1.2 07/26/18 16:02 APTT 30 SECONDS (21-34) 07/26/18 16:02 - Additional Findings Additional findings: - Constitutional Appears: Non-toxic, No Acute Distress - Head Exam Head Exam: ATRAUMATIC, NORMOCEPHALIC - Eye Exam Eye Exam: EOMI, Normal appearance - ENT Exam ENT Exam: Mucous Membranes Moist - Respiratory Exam Respiratory Exam: Clear to Auscultation Bilateral, NORMAL BREATHING PATTERN. absent: Rhonchi, Wheezes - Cardiovascular Exam Cardiovascular Exam: REGULAR RHYTHM, +S1, +S2 - GI/Abdominal Exam GI & Abdominal Exam: Normal Bowel Sounds, Soft, Tenderness (lllq mildly tender to palpation). absent: Distended, Firm, Rebound, Rigid - Extremities Exam Extremities exam: Negative for: pedal edema, tenderness - Neurological Exam Neurological exam: Alert, CN II-XII Intact, Oriented x3 - Psychiatric Exam Psychiatric exam: Normal Affect, Normal Mood - Skin Skin Exam: Dry, Intact Assessment and Plan - Assessment and Plan (Free Text) Assessment: 27 year old female with PMHx of Colitis and IBS-Constipation type admitted for evaluation and treatment of acute diverticulitis. Plan: Acute Diverticulitis CT Scan Noted NPO, Advance diet as tolerated. Zosyn and Metronidazole Tramadol PRN for pain LR @ 100ml/s Zofran PRN for Nausea Consider GI Consult, Patient should get outpatient colonoscopy 4-6 weeks post resolution of diverticulitis Proph Lovenox Patient seen and discussed with Attending Huey Portillo, PGY-2
[2018-07-28] MEDS: Lactated Ringer's 1,000 ML IV SCH ×3 (02:42→21:24)
[2018-07-28] MEDS: Piperacill/Tazo 3.375gm in Dex 3.375 GM/50 ML BAG IVPB SCH ×4 (02:44→20:47)
[2018-07-28] MEDS: metroNIDAZOLE IV 500 mg/100 ml 500 MG/100 ML BAG IVPB SCH ×3 (04:18→19:40)
[2018-07-28 06:34] LABS: BASO % 0.3 % (0.0-2.0); EOS # 0.2 K/uL (0.0-0.7); EOS % 1.9 % (0.0-4.0); HEMOGLOBIN 12.1 g/dL (11.0-16.0); LYMPH # 2.6 K/uL (1.0-4.3); LYMPH % 29.2 % (20.0-40.0); MEAN CORPUSCULAR HEMOGLOBIN 32.1 pg (27.0-31.0); MEAN CORPUSCULAR HGB CONC 34.5 g/dL (33.0-37.0); MEAN PLATELET VOLUME 8.3 fL (7.2-11.7); MONO # 0.7 K/uL (0.0-0.8); MONO % 8.2 % (0.0-10.0); NEUT # 5.4 K/uL (1.8-7.0); NEUT % 60.4 % (50.0-75.0); RBC 3.76 Mil/uL (3.80-5.20); RED CELL DISTRIBUTION WIDTH 12.7 % (11.5-14.5); WHITE BLOOD COUNT 8.9 K/uL (4.8-10.8)
[2018-07-28 06:51] LABS: ALB/GLOB RATIO 1.2 (1.0-2.1); ALBUMIN 3.4 g/dL (3.5-5.0); ALT/SGPT 27 U/L (9-52); AST/SGOT 22 U/L (14-36); BLOOD UREA NITROGEN 7 mg/dL (7-17); CALCIUM 8.3 mg/dl (8.6-10.4); GFR NON-AFRICAN AMERICAN > 60
[2018-07-28] MEDS: Enoxaparin 40 mg Syringe SC SCH (09:32)
--- NOTE | 2018-07-28 11:58 | CP.PCM.PN ---
<Jason Bryson - Last Filed: 07/28/18 15:04> Subjective - Date & Time of Evaluation Date of Evaluation: 07/28/18 Time of Evaluation: 11:56 - Subjective Subjective: PGY-[address] Chester Patient seen and examined at bedside. No acute events overnight. She is tolerating liquid diet. States improved but continued LLQ pain. Well will advance diet as tolerated and continue fluids and IV antibiotics. Denies nausea, vomiting, diarrhea. She did have a bowel movement yesterday. Objective - Vital Signs/Intake and Output Vital Signs (last 24 hours): Temp Pulse Resp BP Pulse Ox 98 F 62 20 90/57 L 97 07/28/18 07:00 07/28/18 07:30 07/28/18 07:00 07/28/18 07:00 07/28/18 07:00 Intake and Output: 07/28/18 07/28/18 06:59 18:59 Intake Total 920 Balance 920 - Medications Medications: Current Medications Enoxaparin Sodium (Lovenox) 40 mg SC DAILY [facility] Last Admin: 07/28/18 09:32 Dose: Not Given Lactated Ringer's (Lactated Ringer's) 1,000 mls @ 100 mls/hr IV .Q10H [facility] Last Admin: 07/28/18 11:28 Dose: 100 mls/hr Metronidazole (Flagyl) 500 mg in 100 mls @ 100 mls/hr IVPB Q8H [facility]; Protocol Last Admin: 07/28/18 11:28 Dose: 100 mls/hr Piperacillin Sod/Tazobactam Sod (Zosyn 3.375 Gm Iv Premix) 3.375 gm in 50 mls @ 100 mls/hr IVPB Q6H [facility]; Protocol Last Admin: 07/28/18 09:32 Dose: 100 mls/hr Ondansetron HCl (Zofran Inj) 4 mg IVP DAILY@ONCE PRN PRN Reason: Nausea/Vomiting Tramadol HCl (Ultram) 50 mg PO TID PRN PRN Reason: Pain, moderate (4-7) - Labs Labs: 07/28/18 06:23 07/28/18 06:23 PT 12.6 SECONDS (9.7-12.2) H 07/26/18 16:02 INR 1.2 07/26/18 16:02 APTT 30 SECONDS (21-34) 07/26/18 16:02 - Constitutional Appears: Non-toxic, No Acute Distress - Head Exam Head Exam: ATRAUMATIC, NORMAL INSPECTION - Eye Exam Eye Exam: EOMI - ENT Exam ENT Exam: Mucous Membranes Moist - Neck Exam Neck Exam: Full ROM - Respiratory Exam Respiratory Exam: Clear to Ausculation Bilateral. absent: Rhonchi, Wheezes - Cardiovascular Exam Cardiovascular Exam: REGULAR RHYTHM, +S1, +S2 - GI/Abdominal Exam GI & Abdominal Exam: Soft, Tenderness (persistent LLQ tenderness), Normal Bowel Sounds - Extremities Exam Extremities Exam: absent: Pedal Edema, Tenderness - Neurological Exam Neurological Exam: Alert, Awake, Oriented x3 - Psychiatric Exam Psychiatric exam: Normal Affect, Normal Mood - Skin Skin Exam: Dry, Intact, Normal Color Assessment and Plan - Assessment and Plan (Free Text) Assessment: Plan: Acute Diverticulitis CT Scan Noted Patient tolerating clears, will ADAT. Zosyn and Metronidazole Tramadol PRN for pain LR @ 100ml/s Zofran PRN for Nausea Patient should get outpatient colonoscopy 4-6 weeks post resolution of diverticu litis, as she has been hospitalized in the past for GI issues PPx heparin 5000 U SC Q8 Patient seen and discussed with Dr. Nemo Bryson, PGY-1 <Boy Chester - Last Filed: 07/28/18 15:21> Objective - Vital Signs/Intake and Output Vital Signs (last 24 hours): Temp Pulse Resp BP Pulse Ox 98 F 86 20 90/57 L 97 07/28/18 07:00 07/28/18 12:01 07/28/18 07:00 07/28/18 07:00 07/28/18 07:00 Intake and Output: 07/28/18 07/28/18 06:59 18:59 Intake Total 920 Balance 920 - Medications Medications: Current Medications Enoxaparin Sodium (Lovenox) 40 mg SC DAILY [facility] Last Admin: 07/28/18 09:32 Dose: Not Given Lactated Ringer's (Lactated Ringer's) 1,000 mls @ 100 mls/hr IV .Q10H [facility] Last Admin: 07/28/18 11:28 Dose: 100 mls/hr Metronidazole (Flagyl) 500 mg in 100 mls @ 100 mls/hr IVPB Q8H [facility]; Protocol Last Admin: 07/28/18 11:28 Dose: 100 mls/hr Piperacillin Sod/Tazobactam Sod (Zosyn 3.375 Gm Iv Premix) 3.375 gm in 50 mls @ 100 mls/hr IVPB Q6H [facility]; Protocol Last Admin: 07/28/18 14:34 Dose: 100 mls/hr Ondansetron HCl (Zofran Inj) 4 mg IVP DAILY@ONCE PRN PRN Reason: Nausea/Vomiting Tramadol HCl (Ultram) 50 mg PO TID PRN PRN Reason: Pain, moderate (4-7) - Labs Labs: 07/28/18 06:23 07/28/18 06:23 PT 12.6 SECONDS (9.7-12.2) H 07/26/18 16:02 INR 1.2 07/26/18 16:02 APTT 30 SECONDS (21-34) 07/26/18 16:02 Attending/Attestation - Attestation I have personally seen and examined this patient.: Yes I have fully participated in the care of the patient.: Yes I have reviewed all pertinent clinical information, including history, physical exam and plan: Yes Notes (Text): 07/28/18 15:18 Medical attending: Patient was seen and examined by me. Agree with the above note by the resident The patient was not in nay acute distress when I came and saw her. She reported the pain was at the same location - much less pain than before. She was hungry and felt she was ready to have a more advanced diet. Lab work this morning was stable Per our discussion we explained to her that in the future would need to have colonscopy since it seems she has been to a [facility] on a different time for a very similar presentation And we advised her to follow up here at [facility] at the [facility] for eventual GI refferal Boy Chester
--- NOTE | 2018-07-28 13:33 | CP.PCM.PN ---
Subjective - Date & Time of Evaluation Date of Evaluation: 07/28/18 Time of Evaluation: 13:31 - Subjective Subjective: General Surgery Progress Note for Dr. Uriarte 27F seen and evaluated at bedside this morning. No acute events overnight. No complaints this morning except that she is hungry. Pain in the LLQ has improved. Tolerating clears. Ambulating and voiding. Patient had a small bowel movement yesterday, passing gas. Denies f/c, n/v/d, SOB, CP, palpitations, or urinary symptoms. Objective - Vital Signs/Intake and Output Vital Signs (last 24 hours): Temp Pulse Resp BP Pulse Ox 98 F 86 20 90/57 L 97 07/28/18 07:00 07/28/18 12:01 07/28/18 07:00 07/28/18 07:00 07/28/18 07:00 Intake and Output: 07/28/18 07/28/18 06:59 18:59 Intake Total 920 Balance 920 - Medications Medications: Current Medications Enoxaparin Sodium (Lovenox) 40 mg SC DAILY [facility] Last Admin: 07/28/18 09:32 Dose: Not Given Lactated Ringer's (Lactated Ringer's) 1,000 mls @ 100 mls/hr IV .Q10H [facility] Last Admin: 07/28/18 11:28 Dose: 100 mls/hr Metronidazole (Flagyl) 500 mg in 100 mls @ 100 mls/hr IVPB Q8H [facility]; Protocol Last Admin: 07/28/18 11:28 Dose: 100 mls/hr Piperacillin Sod/Tazobactam Sod (Zosyn 3.375 Gm Iv Premix) 3.375 gm in 50 mls @ 100 mls/hr IVPB Q6H [facility]; Protocol Last Admin: 07/28/18 09:32 Dose: 100 mls/hr Ondansetron HCl (Zofran Inj) 4 mg IVP DAILY@ONCE PRN PRN Reason: Nausea/Vomiting Tramadol HCl (Ultram) 50 mg PO TID PRN PRN Reason: Pain, moderate (4-7) - Labs Labs: 07/28/18 06:23 07/28/18 06:23 PT 12.6 SECONDS (9.7-12.2) H 07/26/18 16:02 INR 1.2 07/26/18 16:02 APTT 30 SECONDS (21-34) 07/26/18 16:02 - Constitutional Appears: Well, Non-toxic, No Acute Distress - Head Exam Head Exam: ATRAUMATIC, NORMAL INSPECTION, NORMOCEPHALIC - Eye Exam Eye Exam: EOMI - ENT Exam ENT Exam: Mucous Membranes Moist - Respiratory Exam Respiratory Exam: NORMAL BREATHING PATTERN. absent: Respiratory Distress - Cardiovascular Exam Cardiovascular Exam: REGULAR RHYTHM. absent: Tachycardia - GI/Abdominal Exam GI & Abdominal Exam: Soft, Tenderness, Normal Bowel Sounds. absent: Distended - Neurological Exam Neurological Exam: Alert, Awake - Psychiatric Exam Psychiatric exam: Normal Affect, Normal Mood - Skin Skin Exam: Dry, Intact, Normal Color, Warm Assessment and Plan - Assessment and Plan (Free Text) Assessment: 27F w/ acute diverticulitis Plan: Continue IV Abx Continue IVF Continue clear liquids as tolerated Serial abdominal exams Antiemetics and analgesics PRN Encourage ambulation and OOBTC Further recommendations per Dr. Kalani Dumont PGY1
[2018-07-29] MEDS: Lactated Ringer's 1,000 ML IV SCH (02:45)
[2018-07-29] MEDS: Piperacill/Tazo 3.375gm in Dex 3.375 GM/50 ML BAG IVPB SCH ×2 (02:45→09:24)
[2018-07-29] MEDS: metroNIDAZOLE IV 500 mg/100 ml 500 MG/100 ML BAG IVPB SCH (03:52)
[2018-07-29 07:49] VITALS: BP 94/60; TEMP 98.1; O2SAT 99
[2018-07-29 08:10] LABS: BASO % 0.4 % (0.0-2.0); EOS # 0.2 K/uL (0.0-0.7); EOS % 3.5 % (0.0-4.0); HEMOGLOBIN 12.3 g/dL (11.0-16.0); LYMPH # 2.2 K/uL (1.0-4.3); MEAN CELL VOLUME 93.4 fL (81.0-99.0); MEAN CORPUSCULAR HEMOGLOBIN 32.4 pg (27.0-31.0); MEAN CORPUSCULAR HGB CONC 34.7 g/dL (33.0-37.0); MEAN PLATELET VOLUME 8.7 fL (7.2-11.7); MONO # 0.5 K/uL (0.0-0.8); MONO % 7.4 % (0.0-10.0); NEUT # 3.6 K/uL (1.8-7.0); NEUT % 54.7 % (50.0-75.0); RBC 3.78 Mil/uL (3.80-5.20); RED CELL DISTRIBUTION WIDTH 12.7 % (11.5-14.5); WHITE BLOOD COUNT 6.5 K/uL (4.8-10.8)
--- NOTE | 2018-07-29 08:13 | CP.PCM.PN ---
Subjective - Date & Time of Evaluation Date of Evaluation: 07/29/18 Time of Evaluation: 07:25 - Subjective Subjective: Surgery Progress note. Dr. Uriarte service pt seen and examined at bedside this morning. No acute events overnight. No fevers or chills. No new complaints. Still reports some loose stools. Abd pain well controlled. Objective - Vital Signs/Intake and Output Vital Signs (last 24 hours): Temp Pulse Resp BP Pulse Ox 98.6 F 67 20 93/59 L 96 07/29/18 04:00 07/29/18 04:00 07/29/18 04:00 07/29/18 04:00 07/29/18 04:00 Intake and Output: 07/29/18 07/29/18 06:59 18:59 Intake Total 1120 920 Balance 1120 920 - Medications Medications: Current Medications Enoxaparin Sodium (Lovenox) 40 mg SC DAILY CARLOS Last Admin: 07/28/18 09:32 Dose: Not Given Lactated Ringer's (Lactated Ringer's) 1,000 mls @ 100 mls/hr IV .Q10H CARLOS Last Admin: 07/29/18 02:45 Dose: 100 mls/hr Metronidazole (Flagyl) 500 mg in 100 mls @ 100 mls/hr IVPB Q8H CARLOS; Protocol Last Admin: 07/29/18 03:52 Dose: 100 mls/hr Piperacillin Sod/Tazobactam Sod (Zosyn 3.375 Gm Iv Premix) 3.375 gm in 50 mls @ 100 mls/hr IVPB Q6H CARLOS; Protocol Last Admin: 07/29/18 02:45 Dose: 100 mls/hr Ondansetron HCl (Zofran Inj) 4 mg IVP DAILY@ONCE PRN PRN Reason: Nausea/Vomiting Tramadol HCl (Ultram) 50 mg PO TID PRN PRN Reason: Pain, moderate (4-7) - Labs Labs: 07/28/18 06:23 07/28/18 06:23 PT 12.6 SECONDS (9.7-12.2) H 07/26/18 16:02 INR 1.2 07/26/18 16:02 APTT 30 SECONDS (21-34) 07/26/18 16:02 - Constitutional Appears: Well, Non-toxic, No Acute Distress - Head Exam Head Exam: ATRAUMATIC, NORMAL INSPECTION, NORMOCEPHALIC - Eye Exam Eye Exam: EOMI, Normal appearance. absent: Scleral icterus - ENT Exam ENT Exam: Mucous Membranes Moist - Respiratory Exam Respiratory Exam: NORMAL BREATHING PATTERN. absent: Accessory Muscle Use, Respiratory Distress - Cardiovascular Exam Cardiovascular Exam: RRR. absent: JVD - GI/Abdominal Exam GI & Abdominal Exam: Soft. absent: Distended, Firm, Guarding, Tenderness, Rebound - Extremities Exam Extremities Exam: Normal Inspection. absent: Calf Tenderness - Neurological Exam Neurological Exam: Alert, Awake, Oriented x3 - Skin Skin Exam: Dry, Intact, Normal Color, Warm Assessment and Plan - Assessment and Plan (Free Text) Assessment: 27yo F with acute diverticulitis Plan: - Cleared for discharge from surgical standpoint at the primary team's discretion - Recommend discharge on Levaquin and Flagyl PO for 7 days - May follow up with Dr. Uriarte as outpatient. in 14 days. Call for appointment - Recommend outpatient GI follow up as patient may benefit from outpatient colonoscopy in 6-8 weeks. Further recs as per Dr. Uriarte. Manish Joseph PGY2 surgery
[2018-07-29 08:19] LABS: ALB/GLOB RATIO 1.3 (1.0-2.1); ALBUMIN 3.5 g/dL (3.5-5.0); ALT/SGPT 21 U/L (9-52); AST/SGOT 18 U/L (14-36); BLOOD UREA NITROGEN 4 mg/dL (7-17); CALCIUM 8.6 mg/dl (8.6-10.4); GFR NON-AFRICAN AMERICAN > 60
[2018-07-29 08:30] VITALS: PULSE 74
[2018-07-29] MEDS: Enoxaparin 40 mg Syringe SC SCH (09:28)
--- NOTE | 2018-07-29 11:08 | CP.PCM.DIS ---
<Jason Bryson - Last Filed: 07/29/18 11:26> Provider - Provider Date of Admission: 07/26/18 19:14 Attending physician: Julio Portillo MD Time Spent in preparation of Discharge (in minutes): 45 Diagnosis - Discharge Diagnosis (1) Diverticulitis Status: Acute Hospital Course - Lab Results Lab Results: Micro Results 07/27/18 00:31 Blood Blood Culture - Preliminary NO GROWTH AFTER 48 HOURS 07/27/18 00:30 Blood Blood Culture - Preliminary NO GROWTH AFTER 48 HOURS Most Recent Lab Values WBC 6.5 K/uL (4.8-10.8) 07/29/18 07:53 RBC 3.78 Mil/uL (3.80-5.20) L 07/29/18 07:53 Hgb 12.3 g/dL (11.0-16.0) 07/29/18 07:53 Hct 35.3 % (34.0-47.0) 07/29/18 07:53 MCV 93.4 fL (81.0-99.0) 07/29/18 07:53 MCH 32.4 pg (27.0-31.0) H 07/29/18 07:53 MCHC 34.7 g/dL (33.0-37.0) 07/29/18 07:53 RDW 12.7 % (11.5-14.5) 07/29/18 07:53 Plt Count 240 K/uL (130-400) 07/29/18 07:53 MPV 8.7 fL (7.2-11.7) 07/29/18 07:53 Neut % (Auto) 54.7 % (50.0-75.0) 07/29/18 07:53 Lymph % (Auto) 34.0 % (20.0-40.0) 07/29/18 07:53 Menard % (Auto) 7.4 % (0.0-10.0) 07/29/18 07:53 Eos % (Auto) 3.5 % (0.0-4.0) 07/29/18 07:53 Baso % (Auto) 0.4 % (0.0-2.0) 07/29/18 07:53 Neut # (Auto) 3.6 K/uL (1.8-7.0) 07/29/18 07:53 Lymph # (Auto) 2.2 K/uL (1.0-4.3) 07/29/18 07:53 Menard # (Auto) 0.5 K/uL (0.0-0.8) 07/29/18 07:53 Eos # (Auto) 0.2 K/uL (0.0-0.7) 07/29/18 07:53 Baso # (Auto) 0.0 K/uL (0.0-0.2) 07/29/18 07:53 PT 12.6 SECONDS (9.7-12.2) H 07/26/18 16:02 INR 1.2 07/26/18 16:02 APTT 30 SECONDS (21-34) 07/26/18 16:02 Sodium 138 mmol/L (132-148) 07/29/18 07:53 Potassium 3.7 mmol/L (3.6-5.2) 07/29/18 07:53 Chloride 105 mmol/L (98-107) 07/29/18 07:53 Carbon Dioxide 24 mmol/L (22-30) 07/29/18 07:53 Anion Gap 12 (10-20) 07/29/18 07:53 BUN 4 mg/dL (7-17) L 07/29/18 07:53 Creatinine 0.7 mg/dL (0.7-1.2) 07/29/18 07:53 Est GFR ( Amer) > 60 07/29/18 07:53 Est GFR (Non-Af Amer) > 60 07/29/18 07:53 Random Glucose 92 mg/dL (65-105) 07/29/18 07:53 Calcium 8.6 mg/dl (8.6-10.4) 07/29/18 07:53 Phosphorus 3.0 mg/dL (2.5-4.5) 07/27/18 09:16 Magnesium 1.8 mg/dL (1.6-2.3) 07/27/18 09:16 Total Bilirubin 0.5 mg/dL (0.2-1.3) 07/29/18 07:53 Direct Bilirubin 0.4 mg/dL (0.0-0.4) 07/27/18 09:16 AST 18 U/L (14-36) 07/29/18 07:53 ALT 21 U/L (9-52) 07/29/18 07:53 Alkaline Phosphatase 50 U/L (38-126) 07/29/18 07:53 Total Protein 6.2 g/dL (6.3-8.3) L 07/29/18 07:53 Albumin 3.5 g/dL (3.5-5.0) 07/29/18 07:53 Globulin 2.7 gm/dL (2.2-3.9) 07/29/18 07:53 Albumin/Globulin Ratio 1.3 (1.0-2.1) 07/29/18 07:53 Lipase 22 U/L (23-300) L 07/26/18 16:02 Urine Color Yellow (YELLOW) 07/26/18 16:02 Urine Clarity Hazy (Clear) 07/26/18 16:02 Urine pH 5.0 (5.0-8.0) 07/26/18 16:02 Ur Specific [place] 1.025 (1.003-1.030) 07/26/18 16:02 Urine Protein Negative mg/dL (NEGATIVE) 07/26/18 16:02 Urine Glucose (UA) Normal mg/dL (Normal) 07/26/18 16:02 Urine Ketones Negative mg/dL (NEGATIVE) 07/26/18 16:02 Urine Blood 3+ (NEGATIVE) H 07/26/18 16:02 Urine Nitrate Negative (NEGATIVE) 07/26/18 16:02 Urine Bilirubin Negative (NEGATIVE) 07/26/18 16:02 Urine Urobilinogen Normal mg/dL (0.2-1.0) 07/26/18 16:02 Ur Leukocyte Esterase Neg Charity/uL (Negative) 07/26/18 16:02 Urine WBC (Auto) 2 /hpf (0-5) 07/26/18 16:02 Urine RBC (Auto) 31 /hpf (0-3) H 07/26/18 16:02 Ur Squamous Epith Cells 12 /hpf (0-5) H 07/26/18 16:02 Urine Bacteria Rare (<OCC) 07/26/18 16:02 Urine HCG, Qual Negative (NEGATIVE) 07/26/18 16:02 - Hospital Course Hospital Course: Initial HPI: Patient is a 27 year old female with PMHx only of bipolar disorder/depression who states that she began having left lower quadrant pain yesterday afternoon/evening which occurred abruptly. She does have a history of IBS with constipation, but no nausea, vomiting, or diarrhea. No prior history of diverticulitis. She denies fevers, fatigue, or chills. Came to ED and found to have acute diverticulitis on CT abdomen. She had been tolerating PO intake without any pain. Denies family hx of cancer, abdominal issues, or other problems. Hospital Course: Patient was hospitalized for acute diverticulitis and surgery (Dr. Uriarte) was consulted on the case. As this was patient's first episode of diverticulitis and an uncomplicated case, no surgical intervention was required during this hospital stay. Patient kept NPO and started on IV fluids. Patient was started on Zosyn and Flagyl with prn Tramadol and Zofran for symptoms. Patient kept NPO until hospital day three - advanced to clears as abdominal tenderness began to improve on day 3. IV antibiotics continued until day of discharge. On exam prior to discharge, abdominal tenderness was significantly improved and she was instructed on slowly advancing her diet beginning with soft foods and slowly increasing. Of note, patient did state she has been hospitalized in the past with similar GI complaints (possible colitis). It is suggested she follow up with GI upon discharge for possible colonoscopy 6-8 weeks after discharge. Imaging: Chest XR 07/26/18: No focal consolidation CT Abd/pelvis 07/26/18: Findings consistent with acute diverticulitis involving the left mid colon. Left adnexal prominence likely represents the ovary possibly with cyst; recomment pelvic US for further evaluation. Discharge Exam - Head Exam Head Exam: ATRAUMATIC, NORMAL INSPECTION, NORMOCEPHALIC - Eye Exam Eye Exam: EOMI, Normal appearance - ENT Exam ENT Exam: Mucous Membranes Moist Additional comments: missing front teeth - Respiratory Exam Respiratory Exam: NORMAL BREATHING PATTERN. absent: Rhonchi, Wheezes - Cardiovascular Exam Cardiovascular Exam: REGULAR RHYTHM, +S1, +S2 - GI/Abdominal Exam GI & Abdominal Exam: Normal Bowel Sounds, Soft. absent: Distended, Rigid, Tenderness - Extremities Exam Extremities exam: normal inspection - Neurological Exam Neurological exam: Alert, CN II-XII Intact, Oriented x3 - Psychiatric Exam Psychiatric exam: Normal Affect, Normal Mood - Skin Skin Exam: Dry, Intact Discharge Plan - Follow Up Plan Condition: STABLE Disposition: HOME/ ROUTINE Instructions: Perforation of the GI Tract (DC), Diverticulitis (DC), Diverticulitis Diet (DC) Additional Instructions: Patient is cleared for discharge per Dr. Chester Patient is to continue taking taking the following medications: [place] 5 mg one tab per day by mouth daily at 8am Cipro 250 mg one tab by mouth two times per day at 8am and 8pm, for 7 days and Flagyl 500 mg one tablet by mouth every 6 hours (8 am, 2pm, 8pm), for 7 days Please follow up with a primary physician following discharge. [facility] may follow up in the [facility] or [facility]. Patient should follow up with general surgery, Dr. Uriarte, as outpatient in 14 days. Please call to make an appointment. Patient should please follow up with GI as well, as patient may benefit from outpatient colonoscopy in 6-8 weeks. Please return to ED if symptoms recur or worsen Referrals: Alberto Uriarte MD [Staff Provider] - <Boy Chester H - Last Filed: 07/29/18 13:50> Provider - Provider Date of Admission: 07/26/18 19:14 Attending physician: Julio Portillo MD Hospital Course - Lab Results Lab Results: Micro Results 07/27/18 00:31 Blood Blood Culture - Preliminary NO GROWTH AFTER 48 HOURS 07/27/18 00:30 Blood Blood Culture - Preliminary NO GROWTH AFTER 48 HOURS Most Recent Lab Values WBC 6.5 K/uL (4.8-10.8) 07/29/18 07:53 RBC 3.78 Mil/uL (3.80-5.20) L 07/29/18 07:53 Hgb 12.3 g/dL (11.0-16.0) 07/29/18 07:53 Hct 35.3 % (34.0-47.0) 07/29/18 07:53 MCV 93.4 fL (81.0-99.0) 07/29/18 07:53 MCH 32.4 pg (27.0-31.0) H 07/29/18 07:53 MCHC 34.7 g/dL (33.0-37.0) 07/29/18 07:53 RDW 12.7 % (11.5-14.5) 07/29/18 07:53 Plt Count 240 K/uL (130-400) 07/29/18 07:53 MPV 8.7 fL (7.2-11.7) 07/29/18 07:53 Neut % (Auto) 54.7 % (50.0-75.0) 07/29/18 07:53 Lymph % (Auto) 34.0 % (20.0-40.0) 07/29/18 07:53 Menard % (Auto) 7.4 % (0.0-10.0) 07/29/18 07:53 Eos % (Auto) 3.5 % (0.0-4.0) 07/29/18 07:53 Baso % (Auto) 0.4 % (0.0-2.0) 07/29/18 07:53 Neut # (Auto) 3.6 K/uL (1.8-7.0) 07/29/18 07:53 Lymph # (Auto) 2.2 K/uL (1.0-4.3) 07/29/18 07:53 Menard # (Auto) 0.5 K/uL (0.0-0.8) 07/29/18 07:53 Eos # (Auto) 0.2 K/uL (0.0-0.7) 07/29/18 07:53 Baso # (Auto) 0.0 K/uL (0.0-0.2) 07/29/18 07:53 PT 12.6 SECONDS (9.7-12.2) H 07/26/18 16:02 INR 1.2 07/26/18 16:02 APTT 30 SECONDS (21-34) 07/26/18 16:02 Sodium 138 mmol/L (132-148) 07/29/18 07:53 Potassium 3.7 mmol/L (3.6-5.2) 07/29/18 07:53 Chloride 105 mmol/L (98-107) 07/29/18 07:53 Carbon Dioxide 24 mmol/L (22-30) 07/29/18 07:53 Anion Gap 12 (10-20) 07/29/18 07:53 BUN 4 mg/dL (7-17) L 07/29/18 07:53 Creatinine 0.7 mg/dL (0.7-1.2) 07/29/18 07:53 Est GFR ( Amer) > 60 07/29/18 07:53 Est GFR (Non-Af Amer) > 60 07/29/18 07:53 Random Glucose 92 mg/dL (65-105) 07/29/18 07:53 Calcium 8.6 mg/dl (8.6-10.4) 07/29/18 07:53 Phosphorus 3.0 mg/dL (2.5-4.5) 07/27/18 09:16 Magnesium 1.8 mg/dL (1.6-2.3) 07/27/18 09:16 Total Bilirubin 0.5 mg/dL (0.2-1.3) 07/29/18 07:53 Direct Bilirubin 0.4 mg/dL (0.0-0.4) 07/27/18 09:16 AST 18 U/L (14-36) 07/29/18 07:53 ALT 21 U/L (9-52) 07/29/18 07:53 Alkaline Phosphatase 50 U/L (38-126) 07/29/18 07:53 Total Protein 6.2 g/dL (6.3-8.3) L 07/29/18 07:53 Albumin 3.5 g/dL (3.5-5.0) 07/29/18 07:53 Globulin 2.7 gm/dL (2.2-3.9) 07/29/18 07:53 Albumin/Globulin Ratio 1.3 (1.0-2.1) 07/29/18 07:53 Lipase 22 U/L (23-300) L 07/26/18 16:02 Urine Color Yellow (YELLOW) 07/26/18 16:02 Urine Clarity Hazy (Clear) 07/26/18 16:02 Urine pH 5.0 (5.0-8.0) 07/26/18 16:02 Ur Specific [place] 1.025 (1.003-1.030) 07/26/18 16:02 Urine Protein Negative mg/dL (NEGATIVE) 07/26/18 16:02 Urine Glucose (UA) Normal mg/dL (Normal) 07/26/18 16:02 Urine Ketones Negative mg/dL (NEGATIVE) 07/26/18 16:02 Urine Blood 3+ (NEGATIVE) H 07/26/18 16:02 Urine Nitrate Negative (NEGATIVE) 07/26/18 16:02 Urine Bilirubin Negative (NEGATIVE) 07/26/18 16:02 Urine Urobilinogen Normal mg/dL (0.2-1.0) 07/26/18 16:02 Ur Leukocyte Esterase Neg Charity/uL (Negative) 07/26/18 16:02 Urine WBC (Auto) 2 /hpf (0-5) 07/26/18 16:02 Urine RBC (Auto) 31 /hpf (0-3) H 07/26/18 16:02 Ur Squamous Epith Cells 12 /hpf (0-5) H 07/26/18 16:02 Urine Bacteria Rare (<OCC) 07/26/18 16:02 Urine HCG, Qual Negative (NEGATIVE) 07/26/18 16:02 Attending/Attestation - Attestation I have personally seen and examined this patient.: Yes I have fully participated in the care of the patient.: Yes I have reviewed all pertinent clinical information, including history, physical exam and plan: Yes Notes (Text): 07/29/18 13:43 Medical attending: Patient was seen and examined by me. Reviewed the above note by the resident and agree with the above note The patient was not in any acute distress when we came and saw her. Review of lab work shows stable WBC, patient is afebrile as well. Cultures negative She will need to continue with the PO Flagyl and PO Cipro for several more days Ideally if she could follow up at the [facility] that would be ideal since we explained to her that she does need a colonscopy some time in the future However I was informed that because she does not qualify for [facility] care then she would have out of pocket expenses to follow up in the clinic and so patient explained to us she might follow up instead with the [facility] Advised patient on advance deit very slowly as well Boy Chester
== END 2018-07-29 12:29 | disposition home or self-care (01) | DRG 244 ==
LOC: C.ER 14:50 → C.9E 19:14 → C.6T 19:44
PROVIDERS: ADMIT Family Medicine; ATTEND Family Medicine
DX: K57.92 Diverticulitis of intestine, part unspecified, without perforation or abscess without bleeding (principal); E78.5 Hyperlipidemia, unspecified; F12.90 Cannabis use, unspecified, uncomplicated; F17.210 Nicotine dependence, cigarettes, uncomplicated; F31.9 Bipolar disorder, unspecified; K58.9 Irritable bowel syndrome, unspecified

== ENCOUNTER 2018-09-06 06:32 | Emergency (ER) | payer OTHER ==
[2018-09-06] MEDS ORDERED: Sodium Chloride 0.9% 1,000 ML IV ONE ×2 (07:13→09:28)
[2018-09-06] MEDS ORDERED: Sodium Chloride 0.9% 1,000 ML ONE ×2 (07:24→09:33)
--- NOTE | 2018-09-06 07:30 | C.PDOC ---
History Of Present Illness 27 y/o female c/o diffuse myalgias, nausea and multiple episodes of non bloody non bilious vomiting since last night. +subjective fever. pt reports contact with sick relative with a stomach bug. no cough, no abdominal pain. no diarrhea pt hospitalized one month ago for diverticulitis. Time Seen by Provider: 09/06/18 07:12 Chief Complaint (Nursing): GI Problem History Per: Patient History/Exam Limitations: no limitations Onset/Duration Of Symptoms: Days (1) Current Symptoms Are (Timing): Still Present Severity: Moderate Reports Recently: Hospitalized Recent travel outside of the [place]: No Past Medical History Reviewed: Historical Data, Nursing Documentation, Vital Signs Vital Signs: Last Vital Signs Temp 99.9 F H 09/06/18 06:52 Pulse 90 09/06/18 06:52 Resp 14 09/06/18 06:52 BP 98/78 L 09/06/18 06:52 Pulse Ox 99 09/06/18 06:52 - Medical History PMH: Bipolar Disorder, Hyperlipidemia Other PMH: diverticulitis Family History: States: Unknown Family Hx - Social History Hx Tobacco Use: Yes (Light smoker < 10 cigarettes daily) Hx Alcohol Use: Yes Hx Substance Use: Yes (THC) - Immunization History Hx Tetanus Toxoid Vaccination: No Hx Influenza Vaccination: No Hx Pneumococcal Vaccination: No Review Of Systems Constitutional: Positive for: Fever (subjective), Chills ENT: Negative for: Ear Pain, Throat Pain Cardiovascular: Negative for: Chest Pain Respiratory: Negative for: Cough, Shortness of Breath Gastrointestinal: Positive for: Nausea, Vomiting. Negative for: Abdominal Pain, Diarrhea, Constipation Genitourinary: Negative for: Dysuria Musculoskeletal: Negative for: Back Pain Skin: Negative for: Rash Neurological: Negative for: Weakness, Numbness Physical Exam - Physical Exam Appears: Non-toxic, No Acute Distress, Other (uncomfortable) Skin: Warm Head: Atraumatic, Normacephalic Eye(s): bilateral: Normal Inspection Nose: No Discharge Oral Mucosa: Dry Neck: Supple Cardiovascular: Rhythm Regular, No Murmur Respiratory: No Decreased Breath Sounds, No Rales, No Rhonchi, No Wheezing Gastrointestinal/Abdominal: Bowel Sounds, Soft, Tenderness (minimal epigastric tenderness, no rebound or guarding. ), No Distention, No Guarding, No Rebound Back: No CVA Tenderness Extremity: Normal ROM, No Tenderness, No Swelling Neurological/Psych: Oriented x3, Normal Speech, Normal Cognition ED Course And Treatment - Laboratory Results Result Diagrams: 09/06/18 07:40 09/06/18 07:40 O2 Sat by Pulse Oximetry: 99 Medical Decision Making Medical Decision Makin27 y/o female with myalgia, nausea and vomiting; plan; labs, iv hydration, pepcid and zofran. motrin once ucg resulted. pt took 2 tylenol at home this morning, denies allergy to tylenol. 0837 pt resting comfortably, denies any nausea or pain at this times. await pt to give urine. 0926 pt sleeping, myalgias decreased. upreg neg. mild epigastric tenderness on exam, toradol and more fluids ordered. po challenge ordered. Disposition Counseled Patient/Family Regarding: Studies Performed, Diagnosis, Need For Followup, Rx Given - Disposition Referrals: [facility] [Outside] [facility] [Outside] Disposition: HOME/ ROUTINE Disposition Time: 11:22 Condition: IMPROVED Additional Instructions: Drink increased fluids in small amounts and bland foods. Tylenol or Motrin for pain. Zofran for nausea if needed. Return to ER for worse symptoms. Follow up with your doctor or in clinic in a few days. Prescriptions: Famotidine [Pepcid] 20 mg PO DAILY #14 tab Ibuprofen [Motrin] 600 mg PO TID #30 tab Ondansetron ODT [Zofran ODT] 4 mg PO TID #12 odt Instructions: Nausea and Vomiting, Adult (DC) Forms: [facility] ([place]), General Discharge Instructions - Clinical Impression Clinical Impression: Vomiting
[2018-09-06 07:45] LABS: BASO % 0.2 % (0.0-2.0); EOS # 0.1 K/uL (0.0-0.7); EOS % 1.2 % (0.0-4.0); HEMOGLOBIN 12.9 g/dL (11.0-16.0); LYMPH # 1.5 K/uL (1.0-4.3); MEAN CELL VOLUME 93.4 fL (81.0-99.0); MEAN CORPUSCULAR HEMOGLOBIN 31.7 pg (27.0-31.0); MEAN CORPUSCULAR HGB CONC 33.9 g/dL (33.0-37.0); MEAN PLATELET VOLUME 8.1 fL (7.2-11.7); MONO # 0.4 K/uL (0.0-0.8); MONO % 6.8 % (0.0-10.0); NEUT # 3.7 K/uL (1.8-7.0); NEUT % 65.8 % (50.0-75.0); RBC 4.09 Mil/uL (3.80-5.20); RED CELL DISTRIBUTION WIDTH 12.9 % (11.5-14.5); WHITE BLOOD COUNT 5.6 K/uL (4.8-10.8)
[2018-09-06 07:56] LABS: ALB/GLOB RATIO 1.5 (1.0-2.1); ALBUMIN 4.3 g/dL (3.5-5.0); ALT/SGPT 103 U/L (9-52); AST/SGOT 56 U/L (14-36); BLOOD UREA NITROGEN 12 mg/dL (7-17); CALCIUM 8.9 mg/dl (8.6-10.4); GFR NON-AFRICAN AMERICAN > 60; LIPASE 23 U/L (23-300)
[2018-09-06 09:12] VITALS: RESP 16
[2018-09-06 09:37] LABS: SQUAMOUS EPITHIAL 1 /hpf (0-5); URINE BILIRUBIN NEGATIVE (NEGATIVE); URINE BLOOD 2+ (NEGATIVE); URINE CLARITY Clear (Clear); URINE COLOR Yellow (YELLOW); URINE GLUCOSE (UA) NORMAL (Normal); URINE LEUKOCYTE ESTERASE NEG Leu/uL (Negative); URINE PROTEIN NEGATIVE (NEGATIVE); URINE UROBILINOGEN NORMAL mg/dL (0.2-1.0)
[2018-09-06 12:01] VITALS: BP 103/83; PULSE 79; TEMP 98.9
[2018-09-07 21:59] VITALS: O2SAT 99
== END 2018-09-06 11:59 | disposition home or self-care (01) ==
LOC: C.ER 06:32
DX: R11.2 Nausea with vomiting, unspecified (principal); E78.5 Hyperlipidemia, unspecified; F17.210 Nicotine dependence, cigarettes, uncomplicated
CPT/HCPCS: 80053; 81001; 81025; 83690; 85025; 96361; 96374; 96375; 99285; J2405; J7030